=== PATIENT | female | born 1980 | race Caucasian/White ===

== ENCOUNTER 2016-09-20 19:59 | Inpatient (IN) | payer OTHER ==
[~2016-09-20] VITALS: Ht 165.1 cm; Wt 43.1 kg
--- NOTE | ~2016-09-20 | A ---
[facility] DATE: 09/23/16 Patient: CUATE CORTES Physician: ALEX Address: [address] Room/Bed: [address], Zip: [place] [address] Admit Date: 09/20/16 Date of : [birth year] Height: 5 5 Weight: 94 [phone] NUTRITIONAL ASSESSMENT: REASON: LOW BMI (15.8) PATIENT ADMITTED FOR HEROIN DETOX AND DEPRESSION PMH: NONE Anthropometrics: HT: 65", WT: 95#, BMI: 15.8, %IBW: 76 Labs: NO LABS AVAILABLE Meds: MVI, DETOX PROTOCOL Assessment: PATIENT IS A 36 Y/O FEMALE ADMITTED FOR HEROIN DETOX AND DEPRESSION. PATIENT IS CURRENTLY UNEMPLOYED, LIVES WITH FAMILY, SMOKES 1/2 PPD, HAS DAILY HEROIN USE, RECENT COCAINE AND METH USE, AND A HX OF ETOH ABUSE. PER NEEDS ASSESSMENT PATIENT STATED A GOOD APPETITE WITH NO RECENT WEIGHT CHANGE, AND SHE SLEEPS 3HRS/NIGHT ON AVERAGE. THERE IS NO WEIGHT HX NOTED IN MEDITECH. NURSING REPORTS FAIR-GOOD PO INTAKES. PATIENT IS ACTIVELY DETOXING AND SHE HAS SOME C/O NAUSEA, STOMACH CRAMPS, AND RESTLESS LEGS. SHE IS NOTED TO HAVE SORES ON BILATERAL ARMS WITH NO FURTHER SKIN BREAKDOWN NOTED ATT. PATIENT IS ON A REGULAR DIET WITH NO CAFFEINE. Dx: INADEQUATE NUTRIENT INTAKES R/T DRUG USE, DEPRESSION AEB LOW BMI, <90% IBW Intervention: REGULAR DIET, LARGE PORTIONS, MEDS PER MD, DETOX, PSYCH Monitoring, Evaluation and Goals: 1. ADEQUATE PO INTAKES >50-75% OF MEALS 2. PREVENT, CORRECT MICRO/MACRO NUTRIENT DEFICIENCIES 3. WEIGHT; PROMOTE A STEADY WEIGHT GAIN TOWARDS A HEALTHY BMI OF 19-25, PREVENT WEIGHT LOSS MONITOR: WEIGHTS, LABS, PO/FLUID INTAKES Recommendations: 1. CONTINUE REGULAR DIET WITH NO CAFFEINE TOLERATED. OFFER SNACKS BETWEEN MEALS. WILL INCREASE PATIENT'S ENTREES TO LARGER PORTION D/T NEED FOR INCREASED CALORIC INTAKE AND PATIENT'S GOOD PO INTAKES 2. ENCOURAGE ADEQUATE KCAL AND PROTEIN INTAKES 3. OBTAIN WEIGHTS ROUTINELY (EVERY 3-4 DAYS) [facility] DATE: 09/23/16 Patient: CUATE CORTES Physician: ALEX Address: [address] Room/Bed: [address] State, Zip: [place] [address] Admit Date: 09/20/16 Date of : [birth year] Height: 5 5 Weight: 94 [phone] 4. IF PO INTAKES ARE BELOW 50-75% OF MEALS PLEASE ORDER ENSURE BID TO PROMOTE ADEQUATE KCAL AND PROTEIN INTAKES RD TO F/U PER PROTOCOL AND PRN/T PATIENT MILDLY COMPROMISED Respectfully, KARRI CACERES, RD, LD [facility] cc: client file
--- NOTE | ~2016-09-20 | DS ---
Unit #: [id number] #: [id number] Patient: CUATE CORTES [id number] [facility] [address] [place] [address] [id number] I MR#: [id number] NAME: CUATE CORTES ROOM: P175 Age: 36 Sex: F Admission Date: 09/20/2016 : 1980 Discharge Date: 09/23/2016 Attending Physician: Garland Berger M.D. Primary Care Physician: No Primary Care Physician DISCHARGE SUMMARY REASON FOR ADMISSION The patient is a 36-year-old single white female admitted after becoming critically depressed following the loss of her children related to her ongoing substance use. HOSPITAL COURSE The patient was admitted to the [facility] unit and placed on suicide precautions. Laboratory tests were pending at the time of discharge. The patient was instructed to contact the facility regarding results of pending hepatitis and HIV testing. The patient's stay in the hospital was an otherwise uneventful one. She did not request initiation of any psychotropic or other medications. Her mood did seem to improve as her stay in the hospital progressed. By 09/23/2016 the patient denied suicidal ideation and requested discharge and this was ordered. FINAL DIAGNOSES 1. Dysthymic disorder. 2. Alcohol use disorder. 3. Methamphetamine disorder. 4. Cocaine use disorder. FOLLOWUP CARE Followup will take place through the auspices of [facility] in the [place], [place] area. DISCHARGE MEDICATIONS The patient is discharged on no psychotropic or other medications. PROGNOSIS Considered fair. Dictated by... Garland Berger M.D. CB/day TD: 09/25/2016 13:19 JOB #: [id number] Unit #: [id number] #: [id number] Patient: CUATE CORTES DISCHARGE SUMMARY Page 1 of 1 X Garland Berger MD X DISCHARGE SUMMARY
--- NOTE | ~2016-09-20 | PN ---
Unit #: [id number] #: [id number] Patient: CUATE CORTES [id number] [facility] [address] [place] [address] [id number] I MR#: [id number] NAME: CUATE CORTES ROOM: P175 Age: 36 Sex: F Admission Date: 09/20/2016 : 1980 Attending Physician: Garland Berger M.D. Admitting Physician: Garland Berger M.D. Primary Care Physician: Primary Care Physician Neisha HERNANDEZ PROGRESS NOTES DATE 09/22/2016 DISCUSSION The patient appears brighter today and exhibits little in the way of signs or symptoms of withdrawal. She states that she will hope to do outpatient chemical dependence followup in [place] upon discharge which should take place tomorrow. Dictated by... Garland Berger M.D. CB/se TD: 09/22/2016 22:34 JOB #: [id number] [facility]ID PROGRESS NOTES Page 1 of 1 X Garland Berger MD PROGRESS NOTE
--- NOTE | ~2016-09-20 | PA ---
Unit #: [id number] #: [id number] Patient: CUATE CORTES [id number] [place] [address] [id number] I MR#: [id number] NAME: CUATE CORTES ROOM: P175 Age: 36 Sex: F Admission Date: 09/20/2016 : 1980 Date of Assessment: 09/21/2016 Attending Physician: Garland Berger M.D. Admitting Physician: Garland Berger M.D. Primary Care Physician: Primary Care Physician No PSYCHIATRIC ASSESSMENT IDENTIFYING INFORMATION The patient is a 36-year-old white female admitted to the [address] [place] [address] with a history of polysubstance dependence. CHIEF COMPLAINT None given. INFORMANT Chart. Patient cannot be aroused for interview. Reliability good. HISTORY OF PRESENT ILLNESS The patient is a 36-year-old white female admitted in transfer from the [facility] where she presented reporting a history of heroin addiction. The patient also admits to abuse of cocaine and methamphetamine as well as alcohol. The patient denies prior chemical dependence or other mental health treatment. She was not reporting any suicidal ideation when evaluated. The patient has recently lost her children and states that this was the precipitant for bringing her to seek help. PAST PSYCHIATRIC HISTORY As above. PAST MEDICAL HISTORY Noncontributory. MEDICATIONS None. ALLERGIES None. FAMILY HISTORY Not obtained. SOCIAL HISTORY The patient's substance use history is as described previously. She is a user of intravenous heroin. She completed the eighth grade. MENTAL STATUS EXAMINATION The patient has not worked in 9 years and has no source of income. Examination at this time reveals the patient to be a soundly sleeping thin white female who is in a state of some dishevelment. She cannot be Unit #: [id number] #: [id number] Patient: CUATE CORTES aroused for interview. ASSETS AND LIABILITIES The patient's assets: Motivation for change. Liabilities: Lack of resources. DIAGNOSTIC IMPRESSION 1. Opioid use disorder. 2. Methamphetamine use disorder. 3. Cocaine use disorder. TREATMENT PLAN The patient remains hospitalized for safety and stabilization. Routine detoxification protocol for opioids has been initiated, and suicide precautions are in place. Once the patient is better able to participate in interview, we will discuss post-discharge treatment options. ESTIMATED LENGTH OF STAY 3 to 4 days. Dictated by... Zaheer Serrano TD: 09/21/2016 12:39 JOB #: [id number] PSYCHIATRIC ASSESSMENT Page 1 of 1 X Garland Berger MD X PSYCHIATRIC ASSESSMENT
--- NOTE | ~2016-09-20 | HP ---
Unit #: [id number] #: [id number] Patient: CUATE CORTES [id number] [facility] [place] [address] [id number] MR#: [id number] NAME: CUATE CORTES ROOM: P175 Age: 36 Sex: F Admission Date: 09/20/2016 : 1980 Attending Physician: Garland Berger M.D. Admitting Physician: Garland Berger M.D. HISTORY AND PHYSICAL REASON FOR ADMISSION Acute psychiatric inpatient admission. HISTORY OF PRESENT ILLNESS The patient is a frail, 36-year-old female who presented secondary to heroin addiction and/or trying to obtain help. At the present time, she currently has no complaints. In the past and apparently, she has had issues off and on with depressive disorder, hopelessness as well as substance abuse. PAST MEDICAL HISTORY Prior history of substance abuse, major depressive disorder. HOME MEDICATIONS None. ALLERGIES None. SOCIAL HISTORY Positive for tobacco, alcohol, crack cocaine, opiates, and amphetamines. FAMILY HISTORY Positive schizophrenia. REVIEW OF SYSTEMS Positive depression, sweats anxiety, restlessness, increased anxiety. Otherwise as per HPI. PHYSICAL EXAMINATION GENERAL APPEARANCE: The patient is a frail, 36-year-old female, no acute distress. Awake, alert, oriented to person, place, and time. Well built, well nourished. VITAL SIGNS: Blood pressure 117/71, pulse 122. HEAD: Atraumatic. Normocephalic. EYES: Bilateral extraocular muscles are normal. Pupils equal, reactive to light and accommodation. Sclerae are normal. No jaundice. NECK: Neck is supple. No neck rigidity. No thyromegaly. No carotid bruit. No JVD. Oral mucosa is moist. CHEST: Bilateral vesicular breathing. Clear to auscultation. No basilar rales. Unit #: [id number] #: [id number] Patient: CUATE CORTES CARDIOVASCULAR: S1 and S2 normal. No murmur, no gallop, no rub. ABDOMEN: Soft, nontender. No organomegaly. Bowel sounds are normal. No hernia, no masses, no rebound, no guarding. EXTREMITIES: No pitting edema. No calf tenderness. Extremity pulses, including dorsalis pedis, have good volume. BACK: Normal spine curvature. No spine tenderness. No costovertebral angle tenderness. FIELD SUPPORT SPECIALIST: Cranial nerves normal bilaterally. Motor function bilaterally symmetric and normal. Sensory system normal. SKIN: Warm and dry. INITIAL IMPRESSION 1. Acute psychiatric inpatient admission. 2. Substance abuse. 3. IV drug abuse. 4. Failure to thrive. 5. Major depressive disorder. PLAN As per inpatient psychiatrist, medical condition stable. There are no medical contraindications to the patient participating in acute inpatient hospital stay while here at [facility]. Dictated by... Emilia Echols M.D. CLARA/nazia TD: 09/21/2016 17:12 JOB #: [id number] HISTORY AND PHYSICAL Page 1 of 1 X Emilia Echols MD X HISTORY AND PHYSICAL
[2016-09-23 09:45] LABS: URINE APPEARANCE CLOUDY; URINE BILIRUBIN NEG (NEG); URINE BLOOD NEG (NEG); URINE COLOR YELLOW; URINE GLUCOSE NEG (NEG); URINE KETONE NEG (NEG); URINE LEUKOCYTE ESTERASE NEG (NEG); URINE NITRATE NEG (NEG); URINE PROTEIN NEG (NEG); URINE SPECIFIC GRAVITY 1.008 (1.003-1.035); URINE UROBILINOGEN 0.2 MG/DL (NEG)
[2016-09-23 10:05] LABS: AMPHETAMINE POS (NEG); BARBITURATES NEG (NEG); BENZODIAZEPINES NEG (NEG); COCAINE NEG (NEG); MARIJUANA NEG (NEG); OPIATES NEG (NEG); TRICYCLIC ANTIDEPRESSANTS NEG (NEG); U METHADONE NEG (NEG)
[2016-09-23 12:25] LABS: BASOPHIL# 0.1 X10e3 (0-0.3); BASOPHIL% 1.1 % (0-2.5); DIFF IND NO; EOSINOPHIL# 0.1 X10e3 (0-0.7); EOSINOPHIL% 1.5 % (0.0-7.0); HEMATOCRIT 42.6 % (35.0-45.0); HEMOGLOBIN 13.7 gm/dL (12.0-16.0); LYMPHOCYTE# 3.3 X10e3 (1.0-3.5); LYMPHOCYTE% 35.9 % (17.0-45.0); MEAN CELL VOLUME 83.5 FL (83-96); MEAN CORPUSCULAR HEMOGLOBIN 26.8 PG (28-34); MEAN CORPUSCULAR HGB CONC 32.2 g/dL (30-36); MEAN PLATELET VOLUME 8.6 FL (6.5-11.5); MONOCYTE# 0.3 X10e3 (0-1.0); NEUTROPHIL# 5.4 X10e3 (1.5-7.1); NEUTROPHIL% 58.5 % (40-75); PLATELET COUNT 449 X10e3 (140-420); RED CELL DISTRIBUTION WIDTH 15.6 % (11.0-15.5); WHITE BLOOD COUNT 9.2 X10e3 (4.0-10.5)
[2016-09-23 12:36] LABS: ALBUMIN SERUM 3.9 g/dL (3.5-5.0); BILIRUBIN,TOTAL 0.3 mg/dL (0.2-2.0); CALCIUM SERUM 9.3 mg/dL (8.4-10.2); CREATININE SERUM 0.9 mg/dL (0.6-1.4); GLOM FILT RATE Estimated 82.9 mL/min (>60); POTASSIUM 3.9 mmol/L (3.5-5.1); PROTEIN TOTAL SERUM 7.5 g/dL (6.0-8.3)
[2016-09-28 13:30] LABS: HA AB IGM (HEPPAN) Nonreactive (()); HB CORE AB IGM (HEPPAN) Nonreactive (Nonreactive); HB S AG (HEPPAN) Nonreactive (Nonreactive); HEP C AB (HEPPAN) Reactive (Nonreactive)
== END 2016-09-23 15:50 | DRG 897 ==
LOC: P1E 23:56
PROVIDERS: Specialist
PROC: HZ2ZZZZ Detoxification Services for Substance Abuse Treatment (ICD-10-PCS; principal; 2016-09-20)
DX: F11.20 Opioid dependence, uncomplicated (principal); F14.20 Cocaine dependence, uncomplicated; F15.20 Other stimulant dependence, uncomplicated; F17.200 Nicotine dependence, unspecified, uncomplicated
CPT/HCPCS: 80053; 80074; 80307; 81003; 85025; 86592; 87522; 87806